=== PATIENT | male | born 1950 ===

== ENCOUNTER 2024-03-07 14:16 | Emergency (ER) | payer MEDICARE, MEDICAID | END 2024-03-07 14:29 | disposition left against medical advice (07) | LOC: EMS 14:16 | DX: Z53.21 Procedure and treatment not carried out due to patient leaving prior to being seen by health care provider (principal) ==

== ENCOUNTER → 2024-03-07 | Outpatient (CLI) | payer MEDICARE | END | disposition home or self-care (01) | LOC: CARDMN 12:46 | PROVIDERS: ATTEND Student in an Organized Health Care Education/Training Program | DX: I08.0 Rheumatic disorders of both mitral and aortic valves (principal) | CPT/HCPCS: 93306 ==